=== PATIENT | male | born 1940 | race Caucasian/White ===

== ENCOUNTER 2018-04-08 06:00 | Day surgery (SDC) | payer BC, OTHER ==
[2018-04-08] MEDS ORDERED: ceFAZolin 2 GM/DEXTROSE 100 ML IV ONE (12:00)
[2018-04-08] MEDS ORDERED: ceFAZolin 2 GM/SWFI 2 GM/20 ML SYR IVP ONE (12:00)
--- NOTE | 2018-04-08 22:29 | GOP ---
[f rep st] OPERATIVE REPORT DATE OF OPERATION: 04/08/2018 SURGEON: Juan C Mckeon MD ANESTHESIA: General endotracheal anesthesia per Josiah Villa MD. PREOPERATIVE DIAGNOSIS: Bilateral inguinal hernia. POSTOPERATIVE DIAGNOSIS: Bilateral inguinal hernia. PROCEDURE PERFORMED: Laparoscopic total extraperitoneal bilateral inguinal hernia repair. FINDINGS: The patient had a moderate indirect hernia with a moderate lipoma on each side. ESTIMATED BLOOD LOSS: 20 mL. INDICATIONS: 77-year-old male with a history of bilateral groin bulge. Risks and benefits of the pr ocedure were discussed with the patient and his family, their questions were answered, and they wish to proceed. DESCRIPTION OF PROCEDURE: The patient was placed in the supine position. After the induction of daquan quate general endotracheal anesthesia, the patient was prepped and draped in the sterile surgical fas hion. Marcaine 0.5% was injected in the infra-umbilical area and a transverse incision was made, rama roximately 10 mm in length. This was carried down to the subcutaneous tissue with blunt dissection. The anterior fascia was exposed and incised just lateral to the midline. The preperitoneal space wa s then created bluntly, and the balloon dissector introduced. Once this was appropriately positioned , it was inflated under direct vision using the laparoscope. Once adequate dissection had been obtai carmine, the balloon was deflated and withdrawn. The balloon stabilizer was then placed into the same pr eperitoneal plane. The balloon stabilizer was then inflated. The preperitoneal space was then insufflated with carbon dioxide. Two more trocars were placed, both in the midline in the supraumbilical and mid lower abdomen sites. These were both placed under dire ct vision after injecting 0.5% Marcaine for local anesthesia. Blunt dissection was used to expose Hesselbach's triangle. Nasir's ligament was then exposed and th e femoral space explored. Next the space of Bogros was cleared laterally. The cord structures were seen and preserved, and the preperitoneal fat was retracted in a [id number] fashion. The hernia sac was then retracted in a similar fashion. A shaped mesh was then introduced through th e 11-mm trocar and oriented appropriately. It was positioned to ensure coverage of the direct, indir ect, and femoral spaces. The peritoneum and preperitoneal fat was placed over the bottom edge of the mesh to ensure placement. The carbon dioxide was then allowed to escape and the mesh observed to en sure positioning. All trocars were then removed under direct vision. Good hemostasis was noted. The fascia at the 11-mm trocar site was closed with 0 Vicryl in an interrupted fashion. The wounds w ere thoroughly irrigated, and the skin was closed with 5-0 Monocryl in a subcuticular stitch. The wo unds were sterilely dressed. The patient was extubated and taken to the post-anesthesia care unit in stable condition. COMPLICATIONS: None. DRAINS: None. ADDENDUM: A large Bard 3DMax mesh was used on each side. /[id number]/MODL
--- NOTE | 2018-04-09 14:58 | POSTANESTH ---
[facility] Patient Name: VAN GONSALEZ Rpt#: [id number] Unit Number: [id number] Attending: FOREIGN Santiago Date: 04/08/18 Post Anesthetic Evaluation Cardiovascular Status: Normal, Stable Respiratory Status: Normal, Stable Level of Consciousness/Mental Status: Can Participate in Eval Pain Control: Adequate, Prn Tx Ordered Nausea/Vomiting Control: Adequate, Prn Tx Ordered Complications Possibly Related to Anesthesia: None Noted Josiah Villa MD 04/08/18899 <Electronically signed by Josiah Villa MD> 8 T: YANICK 04/08/18858 CC:
--- NOTE | 2018-04-09 14:58 | POSTOPPROG ---
[facility] Patient Name: VAN GONSALEZ Rpt#: [id number] Unit Number: [id number] Attending/ER Physician: FOREIGN MCKEON Patient Type: REG SDC Adm Date/Source: 04/08/18 PHY Discharge Date: Primary [employer]rier: [employer] Documented by: FOREIGN MCKEON on Date/Time:04/08/18 0854 Post Op Note Date of Operation: 04/08/18 Surgeon: Pablo Mckeon Anesthesiologist: Dr. Villa Anesthesia: GET(General Endotracheal) Pre-op Diagnosis: BIH Post-op Diagnosis: BIH Procedure: Lap BIHR Inf/Abcess present in the surg proc area at time of surgery?: No EBL: Minimal *This report may have been compiled using a voice recognition system, and might contain typographical errors and blanks.* Pablo Mckeon MD 04/08/18 0900 <Electronically signed by Pablo Mckeon MD> 3 T: [facility] 04/08/18853 CC:
--- NOTE | 2018-04-09 18:45 | PDANEPAE ---
ANE Past Medical History - Cardiovascular History Hx Hypertension: Yes Hx Arrhythmias: No Hx Chest Pain: No Hx Coronary Artery / Peripheral Vascular Disease: No Hx CHF / Valvular Disease: No Hx Palpitations: No Cardiovascular History Comment: HYPERCHOLESTEROL - Pulmonary History Hx COPD: No Hx Asthma/Reactive Airway Disease: No Hx Recent Upper Respiratory Infection: No Hx Oxygen in Use at Home: No Hx Sleep Apnea: No Sleep Apnea Screening Result - Last Documented: Positive Pulmonary History Comment: SEASONAL HAYFEVER - Neurologic History Hx Cerebrovascular Accident: No Hx Seizures: No Hx Dementia: No - Endocrine History Hx Diabetes: No - Renal History Hx Renal Disorders: No - Liver History Hx Hepatic Disorders: No - Neurological & Psychiatric Hx Hx Neurological and Psychiatric Disorders: No - Cancer History Hx Cancer: No - Congenital Disorder History Hx Congenital Disorders: No Congenital History Comment: SQUAMOUS CELL REMOVED - GI History Hx Gastrointestinal Disorders: No - Other Health History Other Health History: NEG - Chronic Pain History Chronic Pain: No - Surgical History Prior Surgeries: TONSILECTOMY. R KNEE SCOPE - MENISCUS ANE Review of Systems Review of Systems: - Exercise capacity METS (RN): 4 METS ANE Patient History - Allergies Allergies/Adverse Reactions: Penicillins Allergy (Mild, Verified 09/06/13 18:01) Rash - Home Medications Home Medications: Aspirin [Aspirin 325 mg (OTC)] 09/06/13 [Last Taken Unknown] Atorvastatin Calcium [Lipitor 10 mg (RX)] 09/06/13 [Last Taken Unknown] Lisinopril [Zestril] 2.5 mg PO DAILY 09/06/13 [Last Taken Unknown] - Smoking Hx Smoking Status: Never smoked - Family Anes Hx Family Hx Anesthesia Complications: NEG ANE Labs/Vital Signs - Vital Signs Height: 177.8 cm Weight: 78.018 kg ANE Physical Exam - Airway Neck exam: decreased ROM Mallampati Score: Class 2 Mouth exam: poor dentition - Pulmonary Pulmonary: no respiratory distress - Cardiovascular Cardiovascular: regular rate and rhythym - ASA Status ASA Status: II ANE Anesthesia Plan Anesthesia Plan: general endotracheal anesthesia Urgent/Emergent Case: Rj downey completed preop but documented later for safe timely pt care
== END 2018-04-08 10:55 | disposition home or self-care (01) ==
LOC: FSGY 06:00
PROVIDERS: ATTEND Surgery
PROC: 0YUA4JZ Supplement Bilateral Inguinal Region with Synthetic Substitute, Percutaneous Endoscopic Approach (ICD-10-PCS; principal; 2018-04-08 07:30)
DX: K40.20 Bilateral inguinal hernia, without obstruction or gangrene, not specified as recurrent (principal)
CPT/HCPCS: C1727; C1781

== ENCOUNTER → 2019-03-20 | Outpatient (CLI) | payer BC, OTHER | LOC: FIMAGING 08:56 | DX: C61 Malignant neoplasm of prostate (principal) | CPT/HCPCS: 78306; A9503 ==